=== PATIENT | female | born 1975 | race Caucasian/White ===

== ENCOUNTER → 2017-07-24 | Outpatient (CLI) | payer BC ==
--- NOTE | 2017-07-25 08:23 | RADIOLOGY IMAGING REPORT ---
FAC[place] [facility] [place] NAME: ADAM MARTINS : [id number] MR: [id number] V: [id number] EXAM DATE: [id number] ORDERING PHYSICIAN: RACHAEL RAJPUT TECHNOLOGIST: Cecy Edwards PROCEDURE:BILATERAL DIGITAL SCREENING MAMMOGRAM WITH CAD ASSISTED INTERPRETATION AND 3D BREAST TOMOSYNTHESIS. COMPARISON:Prior mammograms dated 05/20/15. INDICATIONS:SCREENING FINDINGS: Dense heterogeneous fibroglandular tissue is seen throughout the breasts. The parenchymal pattern has remained stable when allowing for difference in mammographic technique and patient positioning. There is no evidence of malignant appearing mass, malignant appearing calcification or other secondary sign of malignancy in either breast. DIAGNOSTIC CATEGORY 2--BENIGN FINDING. RECOMMENDATIONS: ROUTINE MAMMOGRAM AND CLINICAL EVALUATION. IMPRESSION: Bi-RADS 2: No significant abnormality is seen. Images were reviewed with R2CAD and 3D breast tomosynthesis. Dictated by: Marisol Daugherty M.D. on 07/24/2017 at 17:49 Transcribed by: JB on 07/24/2017 at 18:36 Approved by: Marisol Daugherty M.D. on 07/25/2017 at 8:22 [facility]
== END ==
LOC: MAMO 14:50
PROVIDERS: ATTEND Physician Assistant
DX: Z12.31 Encounter for screening mammogram for malignant neoplasm of breast (principal)
CPT/HCPCS: 77063; 77067

== ENCOUNTER → 2017-11-16 | Outpatient (CLI) | payer BC ==
[2017-11-16 16:25] LABS: INR 4.37
== END ==
LOC: LAB 16:03
PROVIDERS: ATTEND Family Medicine
DX: Z51.81 Encounter for therapeutic drug level monitoring (principal); Z79.01 Long term (current) use of anticoagulants; I82.499 Acute embolism and thrombosis of other specified deep vein of unspecified lower extremity
CPT/HCPCS: 36415; 85610

== ENCOUNTER → 2018-02-15 | Outpatient (CLI) | payer BC ==
[2018-02-15 15:10] LABS: INR 7.01
== END ==
LOC: LAB 14:45
PROVIDERS: ATTEND Family Medicine
DX: I82.499 Acute embolism and thrombosis of other specified deep vein of unspecified lower extremity (principal); Z79.01 Long term (current) use of anticoagulants
CPT/HCPCS: 36415; 85610

== ENCOUNTER → 2018-06-08 | Outpatient (CLI) | payer BC ==
[2018-06-08 16:46] LABS: INR 1.77
== END ==
LOC: LAB 16:16
PROVIDERS: ATTEND Family Medicine
DX: Z79.01 Long term (current) use of anticoagulants (principal)
CPT/HCPCS: 36415; 85610